=== PATIENT | male | born 2000 | race Asian ===

== ENCOUNTER 2019-02-18 01:47 | Emergency (ER) | payer BC ==
[~2019-02-18] VITALS: Ht 175.3 cm; Wt 63.5 kg
[2019-02-18] MEDS ORDERED: ADVAIR 100-501 EACH INH (02:01)
[2019-02-18] MEDS ORDERED: MEDROLDOSEPACK PO ×2 (02:31→02:45)
[2019-02-18 02:51] VITALS: BP 165/66
== END 2019-02-18 02:51 | disposition home or self-care (01) ==
LOC: M.ERS 01:47
DX: L50.9 Urticaria, unspecified (principal); J45.909 Unspecified asthma, uncomplicated; Z90.49 Acquired absence of other specified parts of digestive tract; Z88.8 Allergy status to other drugs, medicaments and biological substances; Z91.010 Allergy to peanuts